=== PATIENT | female | born 1980 | race Two or more races ===

== ENCOUNTER 2020-11-15 14:39 | Emergency (ER) | payer MEDICAID ==
[~2020-11-15] VITALS: Ht 165.1 cm; Wt 101.2 kg
[~2020-11-15 14:39] MED LIST: IBUP-781
[2020-11-15 17:20] VITALS: BP 116/72
== END 2020-11-15 18:13 | disposition home or self-care (01) ==
LOC: ER 14:39
DX: G44.209 Tension-type headache, unspecified, not intractable (principal)
CPT/HCPCS: 70450

== ENCOUNTER 2022-01-20 12:24 | Emergency (ER) | payer MEDICAID ==
[~2022-01-20] VITALS: Ht 165.1 cm; Wt 110.0 kg
[2022-01-20] MEDS ORDERED: PRED20TA2 PO (14:39)
[2022-01-20] MEDS ORDERED: ACET-1158 PO (14:39)
[2022-01-20] MEDS ORDERED: AMOX-277 PO (14:39)
[2022-01-20 14:43] VITALS: BP 138/52
== END 2022-01-20 15:11 | disposition home or self-care (01) ==
LOC: ER 12:24
DX: J06.9 Acute upper respiratory infection, unspecified (principal); Z20.822 Contact with and (suspected) exposure to COVID-19
CPT/HCPCS: 36415; 71046

== ENCOUNTER 2022-05-08 17:10 | Emergency (ER) | payer MEDICAID ==
[~2022-05-08] VITALS: Ht 165.1 cm; Wt 115.0 kg
[~2022-05-08 17:10] MED LIST changes: +ACET-1158 PO; +AMOX-277 PO; +PRED20TA2 PO
[2022-05-08 18:39] VITALS: BP 109/53
[2022-05-08] MEDS ORDERED: KETOROLAC TROMETH 60MG/2ML VIAL IM ONE (19:15)
[2022-05-08 19:18] LABS: Urine Bacteria NONE SEEN /hpf (None Seen); Urine Blood 3+ /uL (Negative); Urine Mucus FEW (None Seen); Urine Specific Gravity 1.031 (1.001-1.035); Urine WBC 78 /hpf (0 - 5)
[2022-05-08] MEDS ORDERED: IBUP800T26 PO (19:27)
[2022-05-08] MEDS ORDERED: NITR-87 PO (19:27)
== END 2022-05-08 19:51 | disposition home or self-care (01) ==
LOC: ER 17:10
DX: M67.432 Ganglion, left wrist (principal); N39.0 Urinary tract infection, site not specified
CPT/HCPCS: 73110; 81001; 96372; 99284; J1885

== ENCOUNTER 2022-08-26 21:15 | Emergency (ER) | payer MEDICAID ==
[~2022-08-26] VITALS: Ht 165.1 cm; Wt 112.5 kg
[~2022-08-26 21:15] MED LIST changes: +IBUP800T26 PO; +NITR-87 PO
[2022-08-26 22:44] LABS: Basophils # (auto) 0.1 10 ^3/uL (0-0.2); Basophils % (auto) 1.1 % (0.0-2.0); Eosinophils # (auto) 0.2 10 ^3/uL (0-0.8); Eosinophils % (auto) 2.1 % (0.0-7.0); Hematocrit 39.8 % (36.0-46.0); Hemoglobin 13.2 g/dL (12.2-16.2); Lymphocytes % (auto) 24.3 % (10.0-50.0); Mean Corpuscular Hemoglobin 30.3 pg (28.0-32.0); Mean Corpuscular Hgb Conc. 33.2 g/dL (32.0-36.0); Mean Corpuscular Volume 91.1 fL (80.0-100.0); Monocytes # (auto) 0.7 10 ^3/uL (0-1.3); Monocytes % (auto) 8.9 % (0.0-12.0); Neutrophils # (auto) 5.3 10 ^3/uL (1.6-8.6); Neutrophils % (auto) 63.6 % (37.0-80.0); Nucleated Red Blood Cells % 0.1 %; Red Blood Cells 4.36 10^6/uL (4.0-5.20); Red Cell Distribution Width 13.9 % (11.8-14.3); White Blood Cell 8.3 10^3/uL (4.4-10.8)
[2022-08-26 23:11] LABS: Albumin 3.5 g/dL (3.4-5.0); BUN/Creatinine Ratio 22.4 (10.0-20.0); Potassium 3.8 mmol/L (3.5-5.1)
[2022-08-26 23:13] LABS: Bilirubin, Total 0.3 mg/dL (0.2-1.0); Total Protein 8.4 g/dL (6.4-8.2)
[2022-08-27] MEDS ORDERED: AZIT250T9 PO (03:54)
[2022-08-27] MEDS ORDERED: ALBUAER3 IN (03:54)
[2022-08-27] MEDS ORDERED: DexAMETHasone SOD PHOS 10MG/1ML VIAL INJ IM ONE (04:00)
[2022-08-27] MEDS ORDERED: AZITHROMYCIN 250 MG TAB PO ONE (04:00)
[2022-08-27 04:42] VITALS: BP 124/74
== END 2022-08-27 04:44 | disposition home or self-care (01) ==
LOC: ER 21:15
DX: J06.9 Acute upper respiratory infection, unspecified (principal); Z79.899 Other long term (current) drug therapy
CPT/HCPCS: 36415; 70450; 71045; 80053; 84484; 85025; 93005; 96372; 99285; J1100

== ENCOUNTER 2023-01-24 22:03 | Emergency (ER) | payer MEDICAID ==
[~2023-01-24] VITALS: Ht 165.1 cm; Wt 108.2 kg
[~2023-01-24 22:03] MED LIST changes: -ACET-1158 PO; +ACET500T58 PO; +ALBUAER3 IN; -AMOX-277 PO; +AMOX875T4 PO; +AZIT-43 PO; +IBUP-1455 PO; -IBUP800T26 PO
[2023-01-24 22:44] LABS: Urine Bacteria NONE SEEN /hpf (None Seen); Urine Blood Negative /uL (Negative); Urine Clarity Clear (Clear); Urine Color Colorless (Yellow); Urine Protein, UAD Negative (Negative); Urine Specific Gravity 1.025 (1.001-1.035); Urine Urobilinogen Normal (Negative); Urine WBC 3 /hpf (0 - 5); Urine pH 5.5 (5.0-8.0)
[2023-01-24] MEDS ORDERED: HYDROcodone-ACET 10/325MG TAB PO ONE (22:45)
[2023-01-24] MEDS ORDERED: ONDANSETRON ODT 4 MG TAB PO ONE (22:45)
[2023-01-24 22:59] LABS: Basophils # (auto) 0.1 10 ^3/uL (0-0.2); Basophils % (auto) 0.8 % (0.0-2.0); Eosinophils # (auto) 0.1 10 ^3/uL (0-0.8); Eosinophils % (auto) 1.4 % (0.0-7.0); Hematocrit 39.7 % (36.0-46.0); Hemoglobin 13.2 g/dL (12.2-16.2); Lymphocytes % (auto) 22.5 % (10.0-50.0); Mean Corpuscular Hemoglobin 30.8 pg (28.0-32.0); Mean Corpuscular Hgb Conc. 33.2 g/dL (32.0-36.0); Mean Corpuscular Volume 92.5 fL (80.0-100.0); Monocytes # (auto) 0.8 10 ^3/uL (0-1.3); Monocytes % (auto) 9.3 % (0.0-12.0); Neutrophils # (auto) 5.8 10 ^3/uL (1.6-8.6); Red Blood Cells 4.29 10^6/uL (4.0-5.20); Red Cell Distribution Width 13.8 % (11.8-14.3); White Blood Cell 8.8 10^3/uL (4.4-10.8)
[2023-01-24 23:15] LABS: Alanine Aminotransferase 22 U/L (7-40); Albumin 4.1 g/dL (3.2-4.8); Alkaline Phosphatase 79 U/L (46-116); Anion Gap 4 (5-15); Aspartate Aminotransferase 11 U/L (13-40); BUN/Creatinine Ratio 18.8 (10.0-20.0); Blood Urea Nitrogen 16 mg/dL (9-23); Carbon Dioxide 29 mmol/L (20-30); Chloride 106 mmol/L (98-107); Glucose 93 mg/dL (74-106); Lipase 48 U/L (12-53); Potassium 3.7 mmol/L (3.5-5.1); Sodium 139 mmol/L (136-145)
[2023-01-24 23:16] LABS: Bilirubin, Total 0.3 mg/dL (0.2-1.0); Total Protein 7.8 g/dL (5.7-8.2)
[2023-01-24] MEDS ORDERED: IBUPROFEN 800 MG TAB PO ONE (23:30)
[2023-01-25] MEDS ORDERED: IBUP-1455 PO (00:16)
[2023-01-25] MEDS ORDERED: ACET300T58 PO (00:16)
[2023-01-25 00:29] VITALS: BP 108/61; PULSE 66; RESP 18; TEMP 98.2; O2SAT 98
== END 2023-01-25 00:30 | disposition home or self-care (01) ==
LOC: ER 22:03
DX: K80.20 Calculus of gallbladder without cholecystitis without obstruction (principal); E66.01 Morbid (severe) obesity due to excess calories; Z68.39 Body mass index [BMI] 39.0-39.9, adult
CPT/HCPCS: 36415; 74176; 80053; 81001; 83690; 85025; 99284; Q0162

== ENCOUNTER 2023-04-27 07:50 | Emergency (ER) | payer MEDICAID ==
[~2023-04-27] VITALS: Ht 167.6 cm; Wt 113.0 kg
[~2023-04-27 07:50] MED LIST changes: +ACET300T58 PO
[2023-04-27] MEDS ORDERED: GABA-339 PO (09:36)
[2023-04-27 09:46] VITALS: BP 133/74; PULSE 58; RESP 19; TEMP 97.9; O2SAT 100
== END 2023-04-27 09:49 | disposition home or self-care (01) ==
LOC: ER 07:50
DX: M67.432 Ganglion, left wrist (principal); Z79.899 Other long term (current) drug therapy

== ENCOUNTER 2025-03-05 17:29 | Emergency (ER) | payer MEDICAID ==
[~2025-03-05] VITALS: Ht 165.1 cm; Wt 123.7 kg
[~2025-03-05 17:29] MED LIST changes: +GABA-339 PO
--- NOTE | 2025-03-05 18:49 | DVH ---
CLINICAL INDICATION: PAIN INJURY TECHNIQUE: 3 radiographic views of the left knee were obtained. Comparison: None FINDINGS/IMPRESSION: There is no evidence of acute fracture or dislocation. The visualized joint space is well maintained. The alignment is anatomical. There is no radiopaque foreign body.
--- NOTE | 2025-03-05 19:17 | ED.PDOC ---
History of Present Illness HPI Comments 45 y/o F presents with c/c of left knee pain for 1x week s/p working out. Pain is a 9/10 in severity. Denies any pertinent history of previous injuries to knee in the past. Chief Complaint: Lower Extremity Time Seen by MD: 19:00 Primary Care Provider: ROGELIO Reviewed Notes: Nurses Notes, Medications, Allergies Allergies: Coded Allergies: NO KNOWN ALLERGIES (Unverified , 11/28/10) Home Meds Active Scripts Gabapentin (Gabapentin) 600 Mg Tab, 1 TAB PO TID, #30 TAB Prov:ERIC HAAS 04/27/23 Acetaminophen W/ Codeine (Tylenol #4 W/Codeine) 1 Tab Tb, 1 TAB PO Q8HP PRN, #15 TAB Prov:YAN ANG PAC 01/25/23 Ibuprofen Micronized (Ibuprofen) 800 Mg Tab, 800 MG PO Q8HP PRN, #20 TAB Prov:YAN ANG PAC 01/25/23 Albuterol Sulfate (VENTOLIN MDI) 90 Mcg Ih, 90 MCG IN Q6HP PRN for 7 Days, #1 MCG Prov:JULIO CÉSAR FIELD MD 08/27/22 Azithromycin (Azithromycin) 250 Mg Tab, 250 MG PO DAILY, #4 TAB Prov:JULIO CÉSAR FIELD MD 08/27/22 Nitrofurantoin Monohydrate Mac (Macrobid) 100 Mg Cap, 100 MG PO BID for 5 Days, #10 CAP 0 Refills Prov:SHAWN PETTY 05/08/22 Ibuprofen Micronized (Ibuprofen) 800 Mg Tab, 800 MG PO Q6HP PRN, #30 TAB 0 Refills Prov:SHAWN PETTY 05/08/22 Acetaminophen (Acetaminophen) 500 Mg Tab, 500 MG PO QIDP, #30 TAB 0 Refills Prov:NEVILLE DAVISON 01/20/22 Prednisone (Prednisone) 20 Mg Tab, 20 MG PO BID for 5 Days, #10 MG 0 Refills Prov:NEVILLE DAVISON 01/20/22 Amoxicillin & Pot Clavulanate (Amoxicillin/Potassium Cla) 875 Mg Tab, 1 TAB PO BID for 7 Days, #14 TAB 0 Refills Prov:NEVILLE DAVISON 01/20/22 Reported Medications *Ibuprofen Micronized (*Motrin) 400 Mg Tb 11/28/10 Information Source: Patient Mode of Arrival: Ambulatory Severity: Moderate Timing: Days Duration: Since onset Prehospital treatment: None Past Medical History PAST MEDICAL HISTORY: Denies Surgical History: Denies all surgeries 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 Hx Family History Family History: Reviewed,noncontributory to illness Social History Smoker: Non-Smoker Alcohol: Denies ETOH Use Drugs: Denies Drug Use Lives In: Home All Other Systems: Reviewed and Negative (Comprehensive review of systems are negative unless stated in HPI) Physical Exam General Appearance: No Apparent Distress, Obese HEENT: Pharynx Normal Neck: Full Range of Motion, Non-Tender Respiratory: Lungs Clear, No Respiratory Distress, Normal Breath Sounds Cardiovascular: No Murmur, Normal Peripheral Pulses, Regular Rate/Rhythm Breast Exam: Deferred Gastrointestinal: Non Tender, Soft Genitalia: Deferred Pelvic: Deferred Rectal: Deferred Extremities: No calf tenderness, Normal range of motion, No pedal edema Musculoskeletal : Location: Left Extremity Location: Knee (Tenderness lateral and medial aspect of knee no noted edema negative ballottement negative drawer negative Danae's exam. Strength sensory motion intact positive pedal pulse) Apperance: Normal Neurologic: Alert, No Motor Deficits, Normal Affect, Normal Mood, No Sensory Deficits Cerebellar Function: Normal Reflexes: NOT DONE Skin: Dry, Normal Color, Warm Lymphatic: No Adenopathy Was a procedure done? Was a procedure done?: No Differential Dx Considerations may include: fractures, contusions, sprain, among others X-Ray, Labs, Meds, VS Vital Signs Date Time Temp Pulse Resp B/P (MAP) Pulse Ox O2 Delivery O2 Flow Rate FiO2 03/05/25 17:30 97.8 77 18 124/55 98 97.8 [place] [address] Ph: [phone] DIAGNOSTIC IMAGING Diagnostic Imaging Report : [id number] Signed PATIENT: ROE JAMES ACCT: [id number] UNIT: [id number] : 1980 LOC: ER ROOM / BED: / AGE / SEX: 45 / F ADM STATUS: REG ER SERVICE [id number] ORDERING PHYSICIAN: SULLY RODRIGUEZ PROCEDURE(s): LKNE3 - L KNEE 3V XRAY REASON: PAIN INJURY ORDER NUMBER(s): [id number], ACCESSION NUMBER(s): [id number] CLINICAL INDICATION: PAIN INJURY TECHNIQUE: 3 radiographic views of the left knee were obtained. Comparison: None FINDINGS/IMPRESSION: There is no evidence of acute fracture or dislocation. The visualized joint space is well maintained. The alignment is anatomical. There is no radiopaque foreign body. ATED BY: CHE HOLLINGSWORTH DO DICTATED DATE/TIME: 03/05/251846 SIGNED BY: CHE HOLLINGSWORTH DO SIGNED DATE/TIME: 03/05/251846 CC: X-Ray, Labs, Meds, VS Comment Left knee x-ray shows no acute fractures, osseous lesions, dislocations. Advised on rice. Script trial of anti-inflammatory. Follow up with your PCP in 2-3 days as necessary consider further imaging such as MRIs symptoms persist. Images Reviewed?: Images reviewed and evaluated by me Time of 1ST Reevaluation: 19:30 Reevaluation 1ST: Unchanged Patient Education/Counseling: Diagnosis, Treatment Family Education/Counseling: No Family Present SEPSIS Sepsis Screen Date sepsis recognized/suspect: Mar 05, 2025 Time Sepsis recognized/suspect: 1731 Recent Procedure: No On Antibiotic Therapy: No Respiratory Rate >20: No Heart Rate >90: No Temp<36 C (96.8 F) or >38.3 C: No SBP <90 or MAP <65 mmHG: No New Acute Mental Status Change: No Is the patient on CPAP, BIPAP,: No Physician Orders L Knee 3v Xray (03/05/25 18:09) Vital Signs Date Time Temp Pulse Resp B/P (MAP) Pulse Ox O2 Delivery O2 Flow Rate FiO2 03/05/25 17:30 97.8 77 18 124/55 98 97.8 Departure 1 Departure Time of Disposition: 20:19 Impression: Primary Impression: Left knee pain Qualified Codes: M25.562 - Pain in left knee Disposition: HOME / SELF CARE / HOMELESS Condition: Stable e-Prescriptions Nabumetone (Nabumetone) 500 Mg Tab 1 TAB PO BID PRN for 10 Days, #20 TAB Prov: SULLY RODRIGUEZ 03/05/25 Discharged With: Self Critical Care Note Critical Care Time?: No Stability Stability form required: No Heart Score Heart Score: Heart Score Response (Comments) Value History N/A 0 EKG N/A 0 Age N/A 0 Risk Factors N/A 0 Troponin N/A 0 Total 0 I personally scribed for ER ([email or web address]) on 03/05/25 at 19:17. Electronically submitted by Genaro Rousseau ([email or web address]). I personally scribed for ER ([email or web address]) on 03/05/25 at 20:17. Electronically submitted by Genaro Rousseau ([email or web address]). ER Mar 05, 2025 19:17 SULLY RODRIGUEZ CONTAINER FILLER Mar 05, 2025 20:21
[2025-03-05 20:20] VITALS: BP 136/70; PULSE 69; RESP 18; TEMP 98.1; O2SAT 98
[2025-03-05] MEDS ORDERED: NABU-72 PO (20:20)
== END 2025-03-05 20:26 | disposition home or self-care (01) ==
LOC: ER 17:29
DX: M25.562 Pain in left knee (principal); Z79.899 Other long term (current) drug therapy
CPT/HCPCS: 73562